=== PATIENT | male | born 1955 | race Caucasian/White ===

== ENCOUNTER 2024-12-25 21:15 | Emergency (ER) | payer MEDICAID, MEDICARE ==
[~2024-12-25] VITALS: Ht 177.8 cm; Wt 88.0 kg
[~2024-12-25 21:15] MED LIST: VICODIN
[2024-12-25 21:16] VITALS: BP 165/94; PULSE 82; RESP 16; TEMP 37.1; O2SAT 96
[2024-12-25] MEDS: LIDOCAINE 5% PATCH TOP SCH (22:45)
[2024-12-25] MEDS: KETOROLAC 15MG/ML VIAL IM ONE (22:45)
[2024-12-26] MEDS ORDERED: NAPR-1176 MT (01:20)
[2024-12-26] MEDS ORDERED: LIDO-53 TP (01:20)
== END 2024-12-26 01:33 | disposition home or self-care (01) ==
LOC: ER 21:15
DX: M54.2 Cervicalgia (principal); Z79.899 Other long term (current) drug therapy
CPT/HCPCS: 99283; 96372; J1885